=== PATIENT | male | born 1985 | race African-American/Black ===

== ENCOUNTER 2023-07-14 13:00 | Emergency (ER) | payer OTHER, SELFPAY ==
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
[2023-07-14 13:07] VITALS: BP 134/83; PULSE 71; RESP 16; TEMP 36.3; O2SAT 100
[2023-07-14] MEDS: CYCLOBENZAPRINE HCL 10 MG TABLET PO (14:53)
[2023-07-14] MEDS: KETOROLAC (*BKC) 60 MG/2 ML VIAL IM (14:53)
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
[2023-07-14 15:51] VITALS: BP 146/92; PULSE 75; RESP 19; O2SAT 98
== END 2023-07-14 15:52 | disposition home or self-care (01) ==
PROVIDERS: Emergency Provider Emergency Medicine
DX: M25.512 Pain in left shoulder (principal); M25.511 Pain in right shoulder; M19.012 Primary osteoarthritis, left shoulder; M50.322 Other cervical disc degeneration at C5-C6 level
CPT/HCPCS: 72125; 73030; 96372; 99284; A9270; J1885

== ENCOUNTER 2024-12-16 10:01 | Emergency (ER) | payer OTHER, BC, SELFPAY ==
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
[2024-12-16 10:07] VITALS: BP 131/89; PULSE 58; RESP 16; TEMP 36.6; O2SAT 99
--- OUTSIDE RECORDS SUMMARY | 2024-12-16 10:51 | XMS_ITS | Clinical Summary ---
Author Organization [facility] Address [address] [place] [address] Care Team Providers Care Special Education Supervisor Name Role Phone Provider, None Primary Care Provider Unavailabl e Allergies No known active allergies Medications ibuprofen (MOTRIN) 800 MG Tablet Take 1 Tab by mouth every 8 hours. 30 Tab 0 12/23/2015 Active methylPREDNISol one (MEDROL DOSPACK) 4 MG Tablet Therapy Pack See product package insert for dosing schedule 21 Tablet 09/16/2023 Active naproxen (NAPROSYN) 500 MG Tablet Take 1 Tablet by mouth 2 times daily as needed for Mild or more severe pain. 20 Tablet 09/16/2023 Active ketorolac (TORADOL) 10 MG Tablet Take 1 Tablet by mouth every 6 hours as needed for Moderate or more severe pain. 20 Tablet 10/13/2023 Active Immunizations Immunization Administration Dates Next Due Covid-19 Vaccine, Vector-nr, Rs-ad26, Pf, 0.5 Ml (First Wave/J&J) 03/15/2021 Social History Tobacco Use Types Packs/Day Years Used Date Smoking Tobacco: Never Assessed Sex and Gender Information Value Date Recorded Sex Assigned at Not on file Legal Sex Male 11:11 PM CDT Gender Identity Not on file Sexual Orientation Not on file Last Filed Vital Signs Vital Sign Reading Time Taken Comments Blood Pressure 152/99 10/13/2023 8:45 PM CDT Pulse 118 10/13/2023 8:45 PM CDT Temperature 36.1 C (97 F) 10/13/2023 4:38 PM CDT Respiratory Rate 16 10/13/2023 8:45 PM CDT Oxygen Saturation 97% 10/13/2023 8:45 PM CDT Inhaled Oxygen Concentration - - Weight 122.5 kg (270 lb) 10/13/2023 4:38 PM CDT Height 190.5 cm (6' 3) 10/13/2023 4:38 PM CDT Body Mass Index 33.75 10/13/2023 4:38 PM CDT Plan of Treatment Health Maintenance Due Date Last Done Comments Hepatitis C Virus (HCV) Screening 1986 TdaP Immunization 1986 Human Papillomavirus (HPV) Immunization (1 - 3-dose SCDM series) 2013 Influenza Immunization (#1) 2024 SARS-COV-2 Immunization ( season) 2024 03/15/2021, 07/12/2020, 06/14/2020 Respiratory Syncytial Virus (RSV) Immunization (Adult) (1 - 1-dose 75+ series) 2061 Hepatitis B Immunization Completed 998, 01/04/1997, 12/04/1996 DTaP/Tdap/Td Immunization Discontinued 2002, 12/10/1991, 09/25/1988, Additional history exists Meningococcal Immunization (ACWY) Aged Out No longer eligible based on patient's age to complete this topic Pneumococcal Immunization Combined Aged Out No longer eligible based on patient's age to complete this topic Rotavirus Immunization Aged Out No lo nger eligible based on patient's age to complete this topic Insurance MEDICAID [place] Care Teams Special Education Supervisor Relationship Specialty Start Date End Date Provider, None [place] PCP - General 12/23/15
--- OUTSIDE RECORDS SUMMARY | 2024-12-16 10:51 | XMS_ITS | Clinical Summary ---
Author Organization [facility] Address [address] [place] [address] Care Team Providers Care Production Cell Leader Name Role Phone Referral, Self Primary Care Provider Unavailabl e Medications azithromycin (ZITHROMAX) 500 mg tabletIndicatio ns:Prophylaxis, Medical Take both tabs po at the same time with food as directed by 2 tablet 1 08/09/2023 Active Social History Tobacco Use Types Packs/Day Years Used Date Smoking Tobacco: Never Assessed Personal Safety Answer Date Recorded Getting School Help Needed Not on file 05/29 Sex and Gender Information Value Date Recorded Sex Assigned at Not on file 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 Gender Identity Not on file Sexual Orientation Not on file Last Filed Vital Signs Vital Sign Reading Time Taken Comments Blood Pressure 134/94 09/03/2023 3:44 PM CDT Pulse 72 09/03/2023 3:44 PM CDT Temperature 37 C (98.6 F) 09/03/2023 3:44 PM CDT Respiratory Rate 16 09/03/2023 3:44 PM CDT Oxygen Saturation 98% 09/03/2023 3:44 PM CDT Inhaled Oxygen Concentration - - Weight 124.7 kg (275 lb) 09/03/2023 3:44 PM CDT Height 190.5 cm (6' 3) 09/03/2023 3:44 PM CDT Body Mass Index 34.37 09/03/2023 3:44 PM CDT Plan of Treatment Health Maintenance Due Date Last Done Comments Depression Screening 1986 Varicella Vaccines (1 of 2 - 13+ 2-dose series) 10/27/1999 DTaP/Tdap/Td Vaccine (6 - Tdap) 08/06/2002 08/05/2002, 12/10/1991, 09/25/1988, Additional history exists Regular Well Visit/Exam 18-64 2004 HPV Vaccines (1 - 3-dose SCDM series) 2013 Covid-19 Vaccine ( season) 2023 03/15/2021, 07/12/2020, 06/14/2020 Influenza Vaccine (#1) 2024 Hepatitis B Screening Completed 01/12/1998 , 01/04/1997, 12/04/1996 Hepatitis C Screening Completed 06/17/2023 Pneumococcal vaccine <65 Aged Out No longer eligible based on patient's age to complete this topic Procedures Procedure Name Priority Date/Time Associated Diagnosis Comments HEPATITIS C ANTIBODY Routine 06/17/2023 1:03 PM CDT Routine screening for STI (sexually transmitted infection) from Last 3 Months or Most Recently Relevant to Health Maintenance Results * Hepatitis C antibody Blood (06/17/2023 1:03 PM CDT) Hep C Ab Nonreactive Nonreactive Comment:Antibodies to HCV no t detected. Does NOT exclude the possibility of recent exposure to HCV. Current interpretive data was last revised on 21 Blood 06/17/2023 1:03 PM CDT 06/17/2023 6:51 PM CDT Belkis Moore MD LAB MICROBIOLOGY - G ENERAL ORDERABLES Final Result [facility] Department [place] [address] from Last 3 Months or Most Recently Relevant to Health Maintenance Insurance [facility] Care Teams Production Cell Leader Relationship Specialty Start Date End Date Referral, Self PCP - General 06/17/23
--- NOTE | 2024-12-16 11:23 | PC.NURSE ---
Pt states he prefers not to wear gown
[2024-12-16 13:40] VITALS: BP 137/98; PULSE 68; RESP 16; O2SAT 100
[2024-12-16 14:47] VITALS: BP 149/106; PULSE 70; RESP 15; O2SAT 100
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
[2024-12-16] MEDS: IBUPROFEN 400 MG TABLET 800 MG PO (15:48)
[2024-12-16] MEDS: ACETAMINOPHEN 500 MG TABLET 1000 MG PO (15:49)
[2024-12-16] MEDS: CYCLOBENZAPRINE HCL 10 MG TABLET PO (15:49)
[2024-12-16 15:53] VITALS: BP 142/114; PULSE 60; RESP 16; O2SAT 100
--- OUTSIDE RECORDS SUMMARY | 2024-12-16 16:01 | XMS_ITS | Clinical Summary ---
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
== END 2024-12-16 16:00 | disposition home or self-care (01) ==
LOC: ANHED 15:56
PROVIDERS: Emergency Provider Emergency Medicine
DX: S46.912A Strain of unspecified muscle, fascia and tendon at shoulder and upper arm level, left arm, initial encounter (principal); S89.92XA Unspecified injury of left lower leg, initial encounter; S69.92XA Unspecified injury of left wrist, hand and finger(s), initial encounter; V89.2XXA Person injured in unspecified motor-vehicle accident, traffic, initial encounter
CPT/HCPCS: 70450; 72125; 73030; 73110; 73130; 73564; 99284; A9270; L0140